=== PATIENT | female | born 1940 | race Caucasian/White ===

== ENCOUNTER 2021-11-08 09:20 | Emergency (ER) | payer MEDICARE, OTHER ==
[~2021-11-08] VITALS: Ht 165.1 cm; Wt 94.0 kg
[2021-11-08 09:23] VITALS: BP 173/71
== END 2021-11-08 13:01 | disposition home or self-care (01) ==
LOC: ER 09:21
DX: S01.111A Laceration without foreign body of right eyelid and periocular area, initial encounter (principal); S80.212A Abrasion, left knee, initial encounter; S80.211A Abrasion, right knee, initial encounter; R42 Dizziness and giddiness; Z88.1 Allergy status to other antibiotic agents; W19.XXXA Unspecified fall, initial encounter; Y93.89 Activity, other specified; Y92.89 Other specified places as the place of occurrence of the external cause; Y99.8 Other external cause status
CPT/HCPCS: 12001; 70450; 73080; 99284